=== PATIENT | male | born 1950 | race Caucasian/White ===

== ENCOUNTER 2021-02-14 14:35 | Emergency (ER) | payer OTHER, MEDICARE ==
[~2021-02-14] VITALS: Ht 165.1 cm; Wt 86.2 kg
[2021-02-14] MEDS ORDERED: NORVASC10 MG PO (14:54)
[2021-02-14] MEDS ORDERED: PROTONIX40 M2 PO (14:55)
[2021-02-14] MEDS ORDERED: COZAAR100 MG PO (14:55)
[2021-02-14 16:47] VITALS: BP 161/84
== END 2021-02-14 16:47 | disposition home or self-care (01) ==
LOC: M.ERS 14:35
DX: S86.811A Strain of other muscle(s) and tendon(s) at lower leg level, right leg, initial encounter (principal); I10 Essential (primary) hypertension; Z88.8 Allergy status to other drugs, medicaments and biological substances; X50.9XXA Other and unspecified overexertion or strenuous movements or postures, initial encounter; Y93.89 Activity, other specified; Y92.89 Other specified places as the place of occurrence of the external cause; Y99.8 Other external cause status